=== PATIENT | male | born 1970 | race Caucasian/White ===

== ENCOUNTER 2021-07-29 16:14 | Emergency (ER) | payer SELFPAY ==
[2021-07-29 16:57] VITALS: BP 149/115; PULSE 95
--- NOTE | 2021-07-29 17:02 | EDM.PDOC ---
ED HPI GENERAL MEDICAL PROBLEM - General Chief Complaint: Abdominal Pain Stated Complaint: VOMITTING Time Seen by Provider: 07/29/21 17:02 - History of Present Illness INITIAL COMMENTS - FREE TEXT/NARRATIVE: 50-year-old male presents to the emergency room with severe nausea and vomiting. Patient states this started yesterday afternoon he has vomited probably 16 or 17 times since that time. He wonders if it might be related to the antibiotics he is taking. Last now a week and a half ago the patient was started on Bactrim DS for a infected wound on his left lower leg. His leg is getting better. The patient has some discomfort in his abdomen now after vomiting multiple times but initially did not have abdominal discomfort - Related Data Allergies Allergy/AdvReac Type Severity Reaction Status Date / Time No Known Allergies Allergy Verified 07/29/21 16:57 Home Meds: Home Meds Potassium Chloride [Klor-Con M20] 20 meq PO BID #4 tab.er.prt 07/29/21 [Rx] Sulfamethoxazole/Trimethoprim [Bactrim Ds Tablet] 1 tab PO BID 07/29/21 [History] Past Medical History - Past Health History Medical/Surgical History: Denies Medical/Surgical History Social & Family History - Family History Family Medical History: No Pertinent Family History - Tobacco Use Tobacco Use Status *Q: Current Every Day Tobacco User Years of Tobacco use: 30 Packs/Tins Daily: 0.5 - Caffeine Use Caffeine Use: Reports: Soda - Recreational Drug Use Recreational Drug Use: No ED ROS GENERAL - Review of Systems Review Of Systems: See Below Constitutional: Reports: No Symptoms HEENT: Reports: No Symptoms Respiratory: Reports: No Symptoms Cardiovascular: Reports: No Symptoms GI/Abdominal: Reports: No Symptoms, Nausea, Vomiting. Denies: Constipation, Diarrhea : Reports: No Symptoms Musculoskeletal: Reports: No Symptoms Skin: Reports: No Symptoms Neurological: Reports: No Symptoms ED EXAM, GENERAL - Physical Exam Exam: See Below Exam Limited By: No Limitations General Appearance: Alert, No Apparent Distress Ears: Normal External Exam, Normal Canal, Hearing Grossly Normal Nose: Normal Inspection, Normal Mucosa Throat/Mouth: Normal Inspection, Normal Lips, Normal Gums, Normal Oropharynx, Normal Voice, No Airway Compromise, Other (Semidry mucosa) Head: Atraumatic, Normocephalic Neck: Normal Inspection, Supple, Non-Tender, Full Range of Motion. No: Lymphadenopathy (L), Lymphadenopathy (R) Respiratory/Chest: No Respiratory Distress, Lungs Clear, Normal Breath Sounds Cardiovascular: Regular Rate, Rhythm, No Edema, No Murmur GI/Abdominal: Normal Bowel Sounds, Soft, Tender (Superficial tenderness almost like an abdominal wall muscular strain no deep tenderness with palpation). No: Guarding, Rigid, Rebound Back Exam: Normal Inspection, Full Range of Motion. No: CVA Tenderness (L), CVA Tenderness (R) Extremities: Normal Inspection Neurological: Alert, Oriented, Normal Cognition Course - Vital Signs Last Recorded V/S: Last Vital Signs Temp 36.6 C 07/29/21 16:54 Pulse 95 07/29/21 16:54 Resp 18 07/29/21 16:54 BP 149/115 H 07/29/21 16:54 Pulse Ox 97 07/29/21 16:54 - Orders/Labs/Meds Orders: Active Orders 24 hr Category Date Time Status CORONAVIRUS COVID-19 PIPER [[facility]] Stat Lab 07/29/21 18:26 Received Labs: Laboratory Tests 07/29/21 07/29/21 Range/Units 17:50 17:50 WBC 23.36 H (4.23-9.07) K/mm3 RBC 5.44 (4.63-6.08) M/mm3 Hgb 18.3 H (13.7-17.5) gm/dl Hct 52.0 H (40.1-51.0) % MCV 95.6 H (79.0-92.2) fl MCH 33.6 H (25.7-32.2) pg MCHC 35.2 (32.2-35.5) g/dl RDW Std Deviation 62.8 H (35.1-43.9) fL Plt Count 357 H (163-337) K/mm3 MPV 9.5 (9.4-12.3) fl Neut % (Auto) 87.7 H (34.0-67.9) % Lymph % (Auto) 5.5 L (21.8-53.1) % Craig % (Auto) 6.0 (5.3-12.2) % Eos % (Auto) 0 L (0.8-7.0) Baso % (Auto) 0.4 (0.1-1.2) % Neut # (Auto) 20.48 H (1.78-5.38) K/mm3 Lymph # (Auto) 1.29 L (1.32-3.57) K/mm3 Craig # (Auto) 1.40 H (0.30-0.82) K/mm3 Eos # (Auto) 0.00 L (0.04-0.54) K/mm3 Baso # (Auto) 0.09 H (0.01-0.08) K/mm3 Manual Slide Review Abnormal smear Sodium 142 (136-145) mEq/L Potassium 3.3 L (3.5-5.1) mEq/L Chloride 96 L (98-107) mEq/L Carbon Dioxide 33 H (21-32) mEq/L Anion Gap 16.3 H (5-15) BUN 16 (7-18) mg/dL Creatinine 1.9 H (0.7-1.3) mg/dL Est Cr Clr Drug Dosing 54.08 mL/min Estimated GFR (MDRD) 38 (>60) mL/min BUN/Creatinine Ratio 8.4 L (14-18) Glucose 156 H (70-99) mg/dL Calcium 9.6 (8.5-10.1) mg/dL Total Bilirubin 2.0 H (0.2-1.0) mg/dL AST 27 (15-37) U/L ALT 20 (16-63) U/L Alkaline Phosphatase 166 H (46-116) U/L Total Protein 7.7 (6.4-8.2) g/dl Albumin 3.8 (3.4-5.0) g/dl Globulin 3.9 gm/dL Albumin/Globulin Ratio 1.0 (1-2) Lipase 27 L (73-393) U/L Meds: Medications Discontinued Medications Generic Name Dose Route Start Last Admin Trade Name Freq PRN Reason Stop Dose Admin Lactated Ringer's 1,000 mls @ 999 mls/hr 07/29/21 17:29 07/29/21 17:55 Ringers, Lactated IV 07/29/21 18:29 999 mls/hr .BOLUS ONE Administration Ondansetron HCl Confirm 07/29/21 17:22 07/29/21 17:42 Ondansetron 4 Mg Tab.Dis Administered 07/29/21 17:23 Not Given Dose 8 mg .ROUTE .STK-MED ONE Ondansetron HCl 8 mg 07/29/21 17:20 07/29/21 17:20 Ondansetron 4 Mg Tab.Dis PO 07/29/21 17:21 8 mg ONETIME ONE Administration - Re-Assessments/Exams Free Text/Narrative Re-Assessment/Exam: 07/29/21 19:06 Labs reviewed his white count is quite elevated. White count is 23,000 this could be a stress reaction or represent true problems. Chemistries are concerning with potassium is little low at 3.3 CO2 of 33 anion gap 16.3 BUN 16 creatinine 1.9. I would like to give the patient a second liter of fluid and consider further evaluation. But he is pretty insistent on going home at this point he is convinced he can drink plenty of fluids. I will give him some Zofran from the machine out in the waiting room #10 1 or 2 every 6 hours as needed. He needs to follow-up with your regular physician this next week and have his blood work rechecked. Departure - Departure Time of Disposition: 19:10 Disposition: Home, Self-Care 01 Clinical Impression: Nausea & vomiting, Dehydration, Renal insufficiency, Hypokalemia - Discharge Information Referrals: PCP,None [Primary Care Provider] - Forms: ED Department Discharge Additional Instructions: Return to the emergency room with any questions problems or worsening symptoms. Push lots of fluid. Clear liquid diet for the next 24 hours then slowly advance as tolerated. I have given you some nausea medication from the machine out in the waiting room. This is Zofran No. 10 take 1 or 2 every 6 hours as needed for nausea and vomiting. Your potassium was low. I sent a prescription to your local pharmacy for 4 tablets take 1 twice daily starting tomorrow morning. Follow-up with your local physician or establish with 1 you will need to be rechecked at the end of this week and have repeat blood work done. Sepsis Event Note (ED) - Evaluation Sepsis Screening Result: No Definite Risk - Focused Exam Vital Signs: Vital Signs Temp Pulse Resp BP Pulse Ox 07/29/21 16:54 36.6 C 95 18 149/115 H 97 - My Orders Last 24 Hours: My Active Orders 07/29/21 18:26 CORONAVIRUS COVID-19 PIPER [[facility]] Stat - Assessment/Plan Last 24 Hours: My Active Orders 07/29/21 18:26 CORONAVIRUS COVID-19 PIPER [MOLEC] Stat
[2021-07-29] MEDS ORDERED: Ondansetron 4 MG Tab.DIS PO ONE (17:20)
[2021-07-29] MEDS ORDERED: Ondansetron 4 MG Tab.DIS ONE (17:22)
[2021-07-29] MEDS ORDERED: Lactated Ringers 1,000 ML IV ONE (17:29)
== END 2021-07-29 19:36 | disposition home or self-care (01) ==
LOC: JD.ED 16:14
DX: E86.0 Dehydration (principal); E87.6 Hypokalemia; N28.9 Disorder of kidney and ureter, unspecified; Z72.0 Tobacco use
CPT/HCPCS: 36415; 80053; 83690; 85025; 87635; 99284; A9270; J7120; U0002